=== PATIENT | male | born 2000 | race Caucasian/White ===

== ENCOUNTER 2022-10-03 18:09 | Emergency (ER) | payer OTHER, SELFPAY ==
[2022-10-03 18:23] VITALS: BP 144/79; PULSE 110; RESP 16; TEMP 37.2; O2SAT 98
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
== END 2022-10-03 18:50 | disposition home or self-care (01) ==
PROVIDERS: Emergency Provider Nurse Practitioner
DX: S80.12XA Contusion of left lower leg, initial encounter (principal); X58.XXXA Exposure to other specified factors, initial encounter
CPT/HCPCS: 99211; G0463